=== PATIENT | male | born 1960 | race Caucasian/White ===

== ENCOUNTER → 2016-08-25 | Outpatient (CLI) | payer OTHER ==
--- NOTE | ~2016-08-25 | CT55 ---
[facility] A Service of [facility] RADIOLOGY TEXT RESULTS PATIENT: BRYAN CASTANEDA LOCATION: [facility] : 56 UNIT #: [id number] AGE: [address]: David Smith MD SEX: M ORDER DR: [id number] [facility] [address] [place], [place] [address] [id number] O MR#: [id number] Acc #: [id number] NAME: BRYAN CASTANEDA : 1960 SEX: M STUDY DATE/TIME: 08/25/2016 13:02 UNIT: [facility] ROOM: STUDY DESCRIPTION: CT Chest W Con Attending Physician: David Smith M.D. Ordering Physician: David Smith M.D. MEDICAL IMAGING REPORT This report is preliminary unless electronic signature is present EXAM CT of the chest with IV contrast media HISTORY Recent diagnosis of pancreatic carcinoma with weight loss and jaundice. Initial staging of disease. TECHNIQUE Axial imaging of the chest was performed with IV contrast media. This CT exam was performed with one or more of the following radiation dose reduction techniques: Automatic exposure control, adjustment of mA and/or kV according to patient size, and iterative reconstruction. FINDINGS There is a left-sided chest port in place. Lungs show underlying mild emphysema. There are no pulmonary nodules or masses. There is a subpleural nodular density at the left base, which I think is almost certainly benign. There are granulomatous calcifications in the subcarinal region. There is no evidence of mediastinal or hilar lymphadenopathy. There are atherosclerotic plaques in the aorta. Scans through the upper abdomen show pneumobilia and a common duct stent in place. There is an ill-defined mass involving the body and tail of the pancreas with extensive adjacent lymphadenopathy. CONCLUSION 1. Mild emphysematous lung disease. 2. Atherosclerotic disease in the aorta. 3. Subpleural nodular density at the left base almost certainly benign. 4. 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 No evidence of metastatic disease to the chest. ADDENDUM [facility] A Service of [facility] RADIOLOGY TEXT RESULTS PATIENT: BRYAN CASTANEDA [id number] 56 UNIT #: [id number] AGE: [address]: David Smith MD SEX: M ORDER DR: Incidental note made of old healed right-sided rib fractures. Dictated by... Michele Hua M.D. THIS IS AN ELECTRONICALLY VERIFIED REPORT Michele Hua M.D. at 08/31/2016 7:15 AM ANT/summer TD: 08/27/2016 18:59 JOB #: [id number] MEDICAL IMAGING REPORT Page 1 of 1 COPY
[2016-08-25 23:55] LABS: POC - CREATININE 0.84 mg/dL (0.64-1.27); POC - GFR >60.0 mL/min (>60)
== END | disposition home or self-care (01) ==
LOC: CCAT 11:48
PROVIDERS: Internal Medicine Hematology
DX: C25.0 Malignant neoplasm of head of pancreas (principal); J43.9 Emphysema, unspecified; I70.0 Atherosclerosis of aorta; R91.1 Solitary pulmonary nodule; R59.0 Localized enlarged lymph nodes
CPT/HCPCS: 71260; 82565; Q9967

== ENCOUNTER → 2016-12-06 | Outpatient (CLI) | payer OTHER ==
--- NOTE | ~2016-12-06 | CT2 ---
[facility] A Service of [facility] RADIOLOGY TEXT RESULTS PATIENT: BRYAN CASTANEDA LOCATION: [facility] : 56 UNIT #: [id number] AGE: [address]: Jc Smith MD SEX: M ORDER DR: [id number] [facility] [address] [place], [place] [address] [id number] O MR#: [id number] Acc #: [id number] NAME: BRYAN CASTANEDA : 1960 SEX: M STUDY DATE/TIME: 12/06/2016 11:41 UNIT: [facility] ROOM: STUDY DESCRIPTION: CT Abd and Pelv W Cont Attending Physician: Jc Smith M.D., Ph.D. Referring Physician: Jc Smith M.D., Ph.D. Ordering Physician: Jc Smith M.D., Ph.D. Primary Care Physician: Sascha Goodwin M.D. MEDICAL IMAGING REPORT This report is preliminary unless electronic signature is present EXAMINATION CT abdomen and pelvis with contrast. DATE OF EXAM 12/08/2016 HISTORY Malignant neoplasm of the head of the pancreas. Observation for metastatic disease. Restaging. Patient states last chemotherapy treatment, 11/29/2016. COMPARISON CT abdomen and pelvis with contrast, 08/15/2016. CT chest with contrast, 08/25/2016. PROCEDURE 5 mm axial images through the abdomen and pelvis with IV contrast. Enteric contrast was not administered. Sagittal and coronal reformatted images were obtained. This CT exam was performed with one or more of the following radiation dose reduction techniques: automatic exposure control, adjustment of mA and/or kV according to patient size, and iterative reconstruction. FINDINGS ABDOMEN FINDINGS: Abnormal thickening and diminished enhancement of the pancreatic body and tail with mild peripancreatic inflammatory stranding is again seen, but the findings are overall improved compared to 08/15/2016. The degree of pancreatic thickening is diminished. Pancreatic duct is dilated in the region of the body and tail up to 7 mm compared to 8 mm on previous exam. The pancreatic duct is not visible in the region of the pancreatic head and neck. No obstructing intraductal lesion is identified on this exam. CBD stent has been placed in satisfactory position, and there is mild intrahepatic pneumobilia. The [facility] A Service of [facility] RADIOLOGY TEXT RESULTS PATIENT: BRYAN CASTANEDA LOCATION: [facility] : 56 UNIT #: [id number] AGE: [address]: Jc Smith MD SEX: M ORDER DR: abnormal biliary dilation is seen on previous examination is not evident currently. The spleen, adrenals and kidneys have normal postcontrast appearance. The bowel appears nonthickened and noninflamed and the appendix is normal. Previously described peripancreatic lymph node near the pancreatic neck is smaller, today measuring 1.2 x 1.1 cm, compared to 1.5 x 1.3 cm on the previous examination. Another gastrohepatic malignant lymph node measures only 7 x 5 mm today compared to 1.5 x 1.1 cm previously. No new adenopathy is seen. Mild emphysematous changes are present in the lung bases but no basilar consolidation is seen. There is moderate calcific atherosclerosis within the abdominal aorta and common iliac arteries. The bowel appears grossly nonthickened, nondilated, noninflamed. No ascites is seen. PELVIS FINDINGS: Urinary bladder, prostate and rectum are normal. No suspicious osseous lesions are identified. IMPRESSION 1. Abnormal thickening and diminished enhancement of the mid-pancreatic body and tail. How much of this represents active pancreatic inflammation (pancreatitis) versus infiltrative malignancy is unclear. This appears improved, however, compared to 08/15/2016. 2. Pancreatic ductal dilation was 7 mm, slightly diminished from previous examination where it measured up to 8 mm. 3. CBD stent appears appropriately positioned. Mild degree of expected intrahepatic pneumobilia. 4. Previously described peripancreatic and gastrohepatic malignant lymph nodes have diminished in size, consistent with response to therapy. No new adenopathy is seen. 5. There is no evidence of metastatic disease to the liver. 6. Mild emphysematous changes in the lung bases. 7. No evidence of metastatic disease within the pelvis. Dictated by... July Ayala M.D. THIS IS AN ELECTRONICALLY VERIFIED REPORT July Ayala M.D. at 12/07/2016 9:39 AM NANCY/jt [facility]. [facility] A Service of [facility] RADIOLOGY TEXT RESULTS PATIENT: BRYAN CASTANEDA LOCATION: [facility] : 56 UNIT #: [id number] AGE: [address]: Jc Smith MD SEX: M ORDER DR: TD: 12/06/2016 16:24 JOB #: [id number] MEDICAL IMAGING REPORT Page 1 of 1 COPY
[2016-12-06 14:25] LABS: POC - CREATININE 1.02 mg/dL (0.64-1.27); POC - GFR >60.0 mL/min (>60)
== END | disposition home or self-care (01) ==
LOC: CCAT 10:44
PROVIDERS: Internal Medicine Hematology & Oncology
DX: C25.0 Malignant neoplasm of head of pancreas (principal); C96.9 Malignant neoplasm of lymphoid, hematopoietic and related tissue, unspecified; K86.89 Other specified diseases of pancreas
CPT/HCPCS: 74177; 82565; Q9967